=== PATIENT | female | born 2000 | race Native Hawaiian/Other Pacific Islander ===

== ENCOUNTER 2019-10-30 11:37 | Emergency (ER) | payer SELFPAY ==
[2019-10-30 11:50] VITALS: BP 156/90
[2019-10-30] MEDS ORDERED: IBUPROFEN 600 MG TAB PO ONE ×2 (12:39→12:42)
--- NOTE | 2019-10-30 12:39 | Event Note ---
ED Screening Note ED Screening Note: left sided headache intermittently since last week lightheaded no N/V no fever has not taken anything for the headache no neck stiffness no pmhx no allergies to meds LNMP: states she has irregular cycles This initial assessment/diagnostic orders/clinical plan/treatment(s) is/are subject to change based on patients health status, clinical progression and re- assessment by fellow clinical providers in the ED. Further treatment and workup at subsequent clinical providers discretion. Patient/guardian urged not to elope from the ED as their condition may be serious if not clinically assessed and managed. Initial orders include: UA, urine preg, ibuprofen given
[2019-10-30 13:52] LABS: HCG Qualitative,Urine Positive (Negative)
[2019-10-30 13:55] LABS: Bilirubin,Urine NEG (Negative); Blood,Urine NEG (Negative); Color,Urine Yellow (Yellow); Mucus,Urine FEW /HPF; Protein,Urine <15 mg/dL mg/dL (Negative); Urobilinogen,Urine < 2.0 mg/dL (<2.0); WBC,Urine < 1.0 /HPF (0.0-6.0)
[2019-10-30 14:30] LABS: Basophils # (Auto) 0.1 K/mm3 (0.0-0.1); Basophils % (Auto) 0.5 % (0.0-1.8); Eosinophils % (Auto) 0.3 % (0.0-4.3); Hematocrit 34.4 % (30.3-42.9); Hemoglobin 11.3 gm/dl (10.1-14.3); Lymphocytes # (Auto) 2.5 K/mm3 (1.2-5.4); Lymphocytes % (Auto) 19.8 % (13.4-35.0); Mean Corpuscular HGB Conc 33 % (30-34); Mean Corpuscular Volume 78 fl (79-97); Monocytes # (Auto) 0.4 K/mm3 (0.0-0.8); Monocytes % (Auto) 3.1 % (0.0-7.3); Platelet Count 280 K/mm3 (140-440); Red Blood Count 4.41 M/mm3 (3.65-5.03); Red Cell Distribution Width 18.5 % (13.2-15.2)
[2019-10-30 14:42] LABS: BUN/Creatinine Ratio 12; Blood Urea Nitrogen 6 mg/dL (7-17); Calcium 9.1 mg/dL (8.4-10.2); Hemolysis Index 3
--- NOTE | 2019-10-30 20:49 | Emergency Department Report ---
ED Headache HPI - General Chief Complaint: Headache Stated Complaint: HEADACHE Time Seen by Provider: 10/30/19 12:37 - History of Present Illness Initial Comments: 19-year-old female presents with department complaining of a dull throbbing headache of an unknown etiology was started earlier this morning but now resolved since coming to the emergency department. Patient reports taking no medications to resolve the headache. Reports no fever, chills, sweats no nausea, vomiting or visual changes no polyuria or dysuria. Reports no numbness no tingling no neck pain. Timing/Duration: 4-6 hours Quality: mild, moderate Head Injury Location: frontal, parietal Recent Head Trauma: occasional headaches Associated Symptoms: denies: fatigue, facial pain, fever/chills, nausea/vomiting, nasal congestion, nasal drainage, numbness in legs/feet, stiff neck, vision changes Allergies/Adverse Reactions: Allergies No Known Allergies Allergy (Verified 10/30/19 12:41) ED Review of Systems ROS: Stated complaint: HEADACHE Other details as noted in HPI Comment: All other systems reviewed and negative ED Past Medical Hx - Past Medical History Previous Medical History?: Yes Hx Headaches / Migraines: Yes - Surgical History Past Surgical History?: No - Social History Smoking Status: Never Smoker Substance Use Type: None ED Physical Exam - General Limitations: No Limitations General appearance: alert, in no apparent distress - Head Head exam: Present: atraumatic, normocephalic - Eye Eye exam: Present: normal appearance, PERRL, EOMI. Absent: nystagmus Pupils: Present: unequal, other (negative funduscopic examination) - ENT ENT exam: Present: mucous membranes moist, TM's normal bilaterally - Neck Neck exam: Present: normal inspection, full ROM. Absent: tenderness, meningismus, lymphadenopathy - Respiratory Respiratory exam: Present: normal lung sounds bilaterally. Absent: respiratory distress, wheezes, rales, chest wall tenderness, accessory muscle use - Cardiovascular Cardiovascular Exam: Present: regular rate, normal rhythm. Absent: systolic murmur, diastolic murmur, rubs, gallop - GI/Abdominal GI/Abdominal exam: Present: soft, normal bowel sounds. Absent: distended, tenderness, hyperactive bowel sounds, hypoactive bowel sounds, organomegaly - Extremities Exam Extremities exam: Present: normal inspection, full ROM, normal capillary refill. Absent: pedal edema - Back Exam Back exam: Present: normal inspection. Absent: CVA tenderness (R), CVA tenderness (L), muscle spasm, paraspinal tenderness - Neurological Exam Neurological exam: Present: alert, oriented X3, CN II-XII intact, normal gait - Psychiatric Psychiatric exam: Present: normal affect, normal mood. Absent: anxious, flat affect - Skin Skin exam: Present: warm, dry, intact, normal color. Absent: rash, cyanosis, diaphoretic, erythema, petechiae, pallor, ecchymosis ED Course Vital Signs 10/30/19 10/30/19 11:49 12:44 Temperature 98.4 F Pulse Rate 115 H Respiratory 16 18 Rate Blood Pressure 156/90 O2 Sat by Pulse 99 Oximetry ED Medical Decision Making - Lab Data Result diagrams: 10/30/19 14:07 10/30/19 14:07 - Medical Decision Making This patient presents with a headache most consistent with possible tension or migraine headache. Differential diagnosis includes migraine versus tension type headache. No headache red flags. Neurologic exam without evidence of meningismus, focal neurologic findings. Presentation not consistent with acute intracranial bleed to include SAH (lack of risk factors, headache history). Presentation not consistent with acute [employer] REPRESENTATIVE infection to include meningitis or brain abscess, Temporal arteritis unlikely, as is acute angle closure glaucoma given history and physical findings. Presentation not consistent with other acu te, emergent causes of headache at this time. Plan to treat symptomatically with pain medication. No indication for imaging/LP at this time. This patient presents with headache of rapid onset. Etiology is unclear but includes possible preeclampsia, HELLP, SAH or other ICH. Considered, but think unlikely, CVT, Watermans syndrome, carotid dissection. Plan to work up with basic labs, UA to screen for proteinuria, consider head CT, pain control, reassess Plan: pain medication, CT brain deferred, serial reassessment Critical care attestation.: If time is entered above; I have spent that time in minutes in the direct care of this critically ill patient, excluding procedure time. ED Disposition Clinical Impression: Cephalgia Disposition: DC-01 TO HOME OR SELFCARE Is pt being admited?: No Does the pt Need Aspirin: No Condition: Stable Instructions: Migraine Headache (ED), Tension Headache (ED), Acute Headache (ED) Additional Instructions: Please be sure to follow with your WET [facility]ER in 24-48 hours Referrals: PRIMARY CARE, [Primary Care Provider] - 3-5 Days
== END 2019-10-30 20:40 | disposition home or self-care (01) ==
LOC: ED 11:37
DX: R51 Headache (principal); G43.909 Migraine, unspecified, not intractable, without status migrainosus
CPT/HCPCS: 36415; 80048; 81001; 81025; 84702; 85025